=== PATIENT | female | born 1995 | race Caucasian/White ===

== ENCOUNTER 2025-03-18 06:25 | Emergency (ER) | payer BC ==
--- NOTE | 2025-03-18 06:53 | ED ---
Nausea/Vomiting/Diarrhea HPI - General Chief complaint: Nausea/Vomiting/Diarrhea Stated complaint: Reaction to Medication Time Seen by Provider: 03/18/25 06:51 Source: patient, family, RN notes reviewed Mode of arrival: wheelchair Limitations: no limitations - History of Present Illness Initial comments: 29-year-old female presented to ER for evaluation of nausea and vomiting. Patient states she recently finished a 7-day course of Flagyl for treatment of bacterial vaginosis. She states her last dose was yesterday morning. She waited approximately 12 hours after consuming last dose prior to consuming 2 alcoholic drinks last night at her wedding rehearsal dinner. She states since then she has been unable to keep anything down including liquids. She has had persistent nausea and vomiting. She denies any hematic emesis or coffee-ground emesis. Patient is reporting a generalized abdominal discomfort. She also admits to diarrhea. She denies any hematochezia or melena. No urinary complaints. Patient does admit to being on her menstrual cycle. She denies any fevers or chills. She has not taken anything for current symptoms. Patient presents for symptom control. No other complaints - Related Data Previous Rx's Medication Instructions Recorded Ondansetron Odt [Zofran Odt] 4 mg PO Q8HR PRN #10 tab 03/18/25 Allergies Allergy/AdvReac Type Severity Reaction Status Date / Time No Known Allergies Allergy Verified 03/18/25 06:28 Review of Systems ROS Statement: Those systems with pertinent positive or pertinent negative responses have been documented in the HPI. ROS Other: All systems not noted in ROS Statement are negative. Past Medical History Additional Past Medical History / Comment(s): control History of Any Multi-Drug Resistant Organisms: None Reported Past Surgical History: No Surgical Hx Reported Past Psychological History: No Psychological Hx Reported Smoking Status: Never smoker Past Alcohol Use History: Occasional Past Drug Use History: None Reported General Exam Limitations: no limitations General appearance: alert, in no apparent distress Respiratory exam: Present: normal lung sounds bilaterally. Absent: respiratory distress, wheezes, rales, rhonchi, stridor Cardiovascular Exam: Present: regular rate, normal rhythm, normal heart sounds. Absent: systolic murmur, diastolic murmur, rubs, gallop, clicks GI/Abdominal exam: Present: soft, tenderness (generalized), normal bowel sounds Neurological exam: Present: alert, oriented X3, CN II-XII intact Skin exam: Present: warm, dry, intact, normal color. Absent: rash Course Vital Signs 03/18/25 03/18/25 06:29 09:22 Temperature 97.8 F 97.9 F Pulse Rate 93 90 Respiratory 20 18 Rate Blood Pressure 111/79 110/82 O2 Sat by Pulse 98 98 Oximetry - Reevaluation(s) Reevaluation #1: 03/18/25 07:54 Patient reevaluated. No signs of acute distress. Patient reporting continued nausea and 1 episode of emesis after medications. Updated laboratory results. 03/18/25 09:09 Patient tolerating p.o. intake and patient requesting discharge at this time. No signs of acute distress Medical Decision Making - Medical Decision Making Was pt. sent in by a medical professional or institution (, PA, QUARTZ CUTTER, urgent care, hospital, or [facility]...) When possible be specific @ -No Did you speak to anyone other than the patient for history (EMS, parent, family, police, friend...)? What history was obtained from this source @ -Family, at bedside, aiding in HPI and past medical history. Did you review nursing and triage notes (agree or disagree)? Why? @ -I reviewed and agree with nursing and triage notes Were old charts reviewed (outside hosp., previous admission, EMS record, old EKG, old radiological studies, urgent care reports/EKG's, [facility] records)? Report findings @ -No old charts were reviewed Differential Diagnosis (chest pain, altered mental status, abdominal pain women, abdominal pain men, vaginal bleeding, weakness, fever, dyspnea, syncope, headache, dizziness, GI bleed, back pain, seizure, CVA, palpatations, mental health, musculoskeletal)? @ -Cannabis hyperemesis syndrome, gastroenteritis, allergic reaction, viral illness, ... This list is not meant to be all-inclusive EKG interpreted by me (3pts min.). @ -None done X-rays interpreted by me (1pt min.). @ -None done CT interpreted by me (1pt min.). @ -None done U/S interpreted by me (1pt. min.). @ -None done What testing was considered but not performed or refused? (CT, X-rays, U/S, labs)? Why? @ -Imaging for this patient is no focal abdominal tenderness with unimpressive laboratory studies. Patient tolerating p.o. intake. Patient is agreeable to forego imaging. What meds were considered but not given or refused? Why? @ -None Did you discuss the management of the patient with other professionals (shayan cooper i.e. , PA, [employer] C[employer]TER, lab, RT, psych nurse, manager social work, radiation safety officer, teacher, human resource officer, outsole caser)? Give summary @ -No Was smoking cessation discussed for >3mins.? @ -No Was critical care preformed (if so, how long)? @ -No Were there social determinants of health that impacted care today? How? (Homelessness, low income, unemployed, alcoholism, drug addiction, transportation, low edu. Level, literacy, decrease access to med. care, senior care, rehab)? @ -No Was there de-escalation of care discussed even if they declined (Discuss DNR or withdrawal of care, Hospice)? DNR status @ -No What co-morbidities impacted this encounter? (DM, HTN, Smoking, COPD, CAD, Cancer, CVA, ARF, Chemo, Hep., AIDS, mental health diagnosis, sleep apnea, morbid obesity)? @ -None Was patient admitted / discharged? Hospital course, mention meds given and route, prescriptions, significant lab abnormalities, going to OR and other pertinent info. @ -Discharge. 29-year-old female presented the ER for evaluation of nausea, vomiting and diarrhea. Upon arrival vital signs stable. Patient in no signs of acute respiratory distress. Laboratory studies obtained and unimpressive. Urinalysis significant for trace leukocyte esterases and moderate blood, patient is currently on menstrual cycle. Urine hCG negative. Patient provided with symptomatic control with IV fluids, antiemetics, Pepcid and Benadryl with improvement. Symptoms believed to be stemming from recent Flagyl use with alcohol consumption. Patient tolerating petrona crackers and water and requesting discharge upon reevaluation. Zofran prescribed at discharge. return parameters discussed. Patient discharged stable condition with follow-up to PCP. Patient and patient's family, bedside, verbal expressed understanding agree with care plan. Case discussed with ED attending, Dr. Lucas. Undiagnosed new problem with uncertain prognosis? @ -No Drug Therapy requiring intensive monitoring for toxicity (Heparin, Nitro, Insulin, Cardizem)? @ -No Were any procedures done? @ -No Diagnosis/symptom? @ -Nausea and vomiting Acute, or Chronic, or Acute on Chronic? @ -Acute Uncomplicated (without systemic symptoms) or Complicated (systemic symptoms)? @ -Uncomplicated Side effects of treatment? @ -No Exacerbation, Progression, or Severe Exacerbation? @ -No Poses a threat to life or bodily function? How? (Chest pain, USA, OR, pneumonia, PE, COPD, DKA, ARF, appy, cholecystitis, CVA, Diverticulitis, Homicidal, Suicidal, threat to staff... and all critical care pts) @ -Unlikely - Lab Data Result diagrams: 03/18/25 07:01 03/18/25 07:01 Lab Results 03/18/25 03/18/25 03/18/25 Range/Units 07:01 07:01 07:01 WBC 7.02 (4.50-10.00) 10*3/uL RBC 4.58 (4.10-5.20) 10*6/uL Hgb 14.2 (12.0-15.0) g/dL Hct 40.1 (37.2-46.3) % MCV 87.6 (80.0-97.0) fL MCH 31.0 (27.0-32.0) pg MCHC 35.4 (32.0-37.0) g/dL Plt Count 275 (140-440) 10*3/uL MPV 9.4 L (9.5-12.2) fL Immature Gran % (Auto) 0.3 % Neutrophils % 53.8 % Lymphocytes % 30.1 % Monocytes % 7.7 % Eosinophils % 7.1 % Basophils % 1.0 % Immature Gran # 0.02 (0.00-0.04) 10*3/uL Neutrophils # 3.78 (1.80-7.70) 10*3/uL Lymphocytes # 2.11 (0.90-5.00) 10*3/uL Monocytes # 0.54 (0.20-1.00) 10*3/uL Eosinophils # 0.50 H (0.04-0.35) 10*3/uL Basophils # 0.07 (0.00-0.10) 10*3/uL Sodium 139 (137-145) mmol/L Potassium 4.1 (3.5-5.1) mmol/L Chloride 106 (98-107) mmol/L Carbon Dioxide 22 (22-30) mmol/L Anion Gap 11 mmol/L BUN 9 (7-17) mg/dL Creatinine 0.44 L (0.52-1.04) mg/dL Est GFR (CKD-EPI)AfAm >90 (>60 ml/min/1.73 sqM) Est GFR (CKD-EPI)NonAf >90 (>60 ml/min/1.73 sqM) Glucose 106 H (74-99) mg/dL Plasma Lactic Acid Alfredo 1.7 (0.7-2.0) mmol/L Calcium 9.7 (8.4-10.2) mg/dL Total Bilirubin 0.5 (0.2-1.3) mg/dL AST 24 (14-36) U/L ALT 21 (4-34) U/L Alkaline Phosphatase 60 (38-126) U/L Total Protein 7.7 (6.3-8.2) g/dL Albumin 4.5 (3.5-5.0) g/dL Urine Color Urine Appearance (Clear) Urine pH (5.0-8.0) Ur Specific [place] (1.001-1.035) Urine Protein (Negative) Urine Glucose (UA) (Negative) Urine Ketones (Negative) Urine Blood (Negative) Urine Nitrite (Negative) Urine Bilirubin (Negative) Urine Urobilinogen (<2.0) mg/dL Ur Leukocyte Esterase (Negative) Urine RBC (0-5) /hpf Urine WBC (0-5) /hpf Ur Squamous Epith Cells (0-4) /hpf Urine Bacteria (None) /hpf Urine Mucus (None) /hpf Urine HCG, Qual (Not Detectd) 03/18/25 03/18/25 Range/Units 07:11 07:11 WBC (4.50-10.00) 10*3/uL RBC (4.10-5.20) 10*6/uL Hgb (12.0-15.0) g/dL Hct (37.2-46.3) % MCV (80.0-97.0) fL MCH (27.0-32.0) pg MCHC (32.0-37.0) g/dL Plt Count (140-440) 10*3/uL MPV (9.5-12.2) fL Immature Gran % (Auto) % Neutrophils % % Lymphocytes % % Monocytes % % Eosinophils % % Basophils % % Immature Gran # (0.00-0.04) 10*3/uL Neutrophils # (1.80-7.70) 10*3/uL Lymphocytes # (0.90-5.00) 10*3/uL Monocytes # (0.20-1.00) 10*3/uL Eosinophils # (0.04-0.35) 10*3/uL Basophils # (0.00-0.10) 10*3/uL Sodium (137-145) mmol/L Potassium (3.5-5.1) mmol/L Chloride (98-107) mmol/L Carbon Dioxide (22-30) mmol/L Anion Gap mmol/L BUN (7-17) mg/dL Creatinine (0.52-1.04) mg/dL Est GFR (CKD-EPI)AfAm (>60 ml/min/1.73 sqM) Est GFR (CKD-EPI)NonAf (>60 ml/min/1.73 sqM) Glucose (74-99) mg/dL Plasma Lactic Acid Alfredo (0.7-2.0) mmol/L Calcium (8.4-10.2) mg/dL Total Bilirubin (0.2-1.3) mg/dL AST (14-36) U/L ALT (4-34) U/L Alkaline Phosphatase (38-126) U/L Total Protein (6.3-8.2) g/dL Albumin (3.5-5.0) g/dL Urine Color Light Red Urine Appearance Clear (Clear) Urine pH 8.0 (5.0-8.0) Ur Specific [place] 1.026 (1.001-1.035) Urine Protein Trace H (Negative) Urine Glucose (UA) Negative (Negative) Urine Ketones Negative (Negative) Urine Blood Moderate H (Negative) Urine Nitrite Negative (Negative) Urine Bilirubin Negative (Negative) Urine Urobilinogen <2.0 (<2.0) mg/dL Ur Leukocyte Esterase Trace H (Negative) Urine RBC 5 (0-5) /hpf Urine WBC 4 (0-5) /hpf Ur Squamous Epith Cells 2 (0-4) /hpf Urine Bacteria Rare H (None) /hpf Urine Mucus Rare H (None) /hpf Urine HCG, Qual Not Detected (Not Detectd) Disposition Clinical Impression: Nausea and vomiting Disposition: HOME SELF-CARE Condition: Stable Instructions (If sedation given, give patient instructions): Acute Nausea and Vomiting (ED) Additional Instructions: You may take Zofran as needed. Be sure to drink plenty of fluids. Follow-up with PCP. Return to the ER for any new or worsening concerns Prescriptions: Ondansetron Odt [Zofran Odt] 4 mg PO Q8HR PRN #10 tab PRN Reason: Nausea Is patient prescribed a controlled substance at d/c from ED?: No Referrals: Nonstaff,Physician [Primary Care Provider] - 1-2 days Time of Disposition: 09:09
[2025-03-18] MEDS: SODIUM CHLORIDE 0.9% 1,000 ML IV ONE (07:03)
[2025-03-18] MEDS: ONDANSETRON 4 MG/2 ML VIAL IVP STA (07:10)
[2025-03-18] MEDS: FAMOTIDINE 20 MG/2 ML VIAL IV STA (07:10)
[2025-03-18 07:35] LABS: Basophils # (A) 0.07 10*3/uL (0.00-0.10); Eosinophils % (A) 7.1 %; HCT 40.1 % (37.2-46.3); HGB 14.2 g/dL (12.0-15.0); Lymphocytes # (A) 2.11 10*3/uL (0.90-5.00); Lymphocytes % (A) 30.1 %; MCHC 35.4 g/dL (32.0-37.0); MCV 87.6 fL (80.0-97.0); Mean Platelet Volume 9.4 fL (9.5-12.2); Monocytes # (A) 0.54 10*3/uL (0.20-1.00); Monocytes % (A) 7.7 %; Neutrophils # (A) 3.78 10*3/uL (1.80-7.70); Neutrophils % (A) 53.8 %; Platelet Count 275 10*3/uL (140-440); RBC 4.58 10*6/uL (4.10-5.20); RDW 11.6 % (11.5-14.5); WBC 7.02 10*3/uL (4.50-10.00)
[2025-03-18 07:35] LABS: Appearance,Urine Clear (Clear); Bacteria,Urine Rare /hpf; Bilirubin,Urine Negative (Negative); Blood,Urine Moderate (Negative); Color,Urine Light Red; Glucose,Urine (UA) Negative (Negative); Ketones,Urine Negative (Negative); Leukocyte Esterase,Urine Trace (Negative); Mucus,Urine Rare /hpf; Nitrite,Urine Negative (Negative); Protein,Urine Trace (Negative); RBC,Urine 5 /hpf (0-5); Specific Gravity,Urine 1.026 (1.001-1.035); Squamous Epithelial Cell,Urine 2 /hpf (0-4); Urobilinogen,Urine <2.0 mg/dL (<2.0); WBC,Urine 4 /hpf (0-5)
[2025-03-18 07:37] LABS: ALT 21 U/L (4-34); AST 24 U/L (14-36); African American GFR (CKD) >90 (>60 ml/min/1.73 sqM); Albumin 4.5 g/dL (3.5-5.0); Alkaline Phosphatase 60 U/L (38-126); Anion Gap 11 mmol/L; Blood Urea Nitrogen 9 mg/dL (7-17); Calcium 9.7 mg/dL (8.4-10.2); Carbon Dioxide 22 mmol/L (22-30); Chloride 106 mmol/L (98-107); Glucose 106 mg/dL (74-99); Non-African American GFR(CKD) >90 (>60 ml/min/1.73 sqM); Potassium 4.1 mmol/L (3.5-5.1); Sodium 139 mmol/L (137-145); Total Bilirubin 0.5 mg/dL (0.2-1.3); Total Protein 7.7 g/dL (6.3-8.2)
[2025-03-18] MEDS: SODIUM CHLORIDE 0.9% 500 ML 500 ML IV ONE (08:01)
[2025-03-18] MEDS: METOCLOPRAMIDE 5 MG/ML 2 ML VIAL IVP STA (08:03)
[2025-03-18] MEDS: diphenhydrAMINE 50 MG/ML 1 ML VIAL IVP STA (08:03)
[2025-03-18 09:26] VITALS: BP 110/82; PULSE 90; RESP 18; TEMP 97.9
== END 2025-03-18 09:22 | disposition home or self-care (01) ==
LOC: EC 06:25
DX: R11.2 Nausea with vomiting, unspecified (principal)
CPT/HCPCS: 36415; 80053; 83605; 85025; 81001; 81025; 99284; 96374; 96375; 96361; J1200; J2765; J2405; J1308